=== PATIENT | male | born 1975 | race Caucasian/White ===

== ENCOUNTER 2016-10-14 16:55 | Emergency (ER) | payer BC, SELFPAY ==
[2016-10-14 20:02] LABS: HEMOGLOBIN 15.4 gm/dl (14.0-17.5); RED BLOOD COUNT 4.91 M/UL (4.20-5.50)
[2016-10-14 20:13] LABS: BUN/CREATININE RATIO 23 (0-10)
== END 2016-10-14 23:10 | disposition home or self-care (01) ==
LOC: ER1 16:55
PROVIDERS: Physician Assistant
DX: R10.9 Unspecified abdominal pain (principal); R33.9 Retention of urine, unspecified; R00.1 Bradycardia, unspecified
CPT/HCPCS: 36415; 80053; 81001; 85025; 96374; 96375; 96376; 99284; J1885; J2270; J2405; J7030